=== PATIENT | male | born 1990 | race Two or more races ===

== ENCOUNTER 2017-07-14 19:13 | Emergency (ER) | payer OTHER ==
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
[2017-07-14] MEDS ORDERED: OXYCODONE/APAP 5/325 TAB PO ONE (19:33)
[2017-07-14 20:38] VITALS: BP 117/77
== END 2017-07-14 20:38 | disposition home or self-care (01) ==
DX: S43.102A Unspecified dislocation of left acromioclavicular joint, initial encounter (principal); V17.4XXA Pedal cycle driver injured in collision with fixed or stationary object in traffic accident, initial encounter; Y92.410 Unspecified street and highway as the place of occurrence of the external cause; Y99.8 Other external cause status; Y93.55 Activity, bike riding
CPT/HCPCS: A4565